=== PATIENT | female | born 1970 | race Caucasian/White ===

== ENCOUNTER → 2021-05-18 | Day surgery (SDC) | payer BC ==
[~2021-05-18] VITALS: Ht 167.6 cm; Wt 89.7 kg
[~2021-05-18] MED LIST: CYMBALTA 60MG60 MG PO; NEURONTIN300 MG/CAP PO; OMNICEF 300MG300 MG PO
[2021-05-18 09:06] VITALS: BP 102/68; PULSE 68; TEMP 98.4
[2021-05-18 11:35] VITALS: BP 109/68; PULSE 73; TEMP 98.1
[2021-05-18 11:45] VITALS: BP 110/68; PULSE 73
[2021-05-18 12:00] VITALS: BP 92/71; PULSE 75
[2021-05-18 12:15] VITALS: BP 97/56; PULSE 79
--- NOTE | 2021-05-18 12:50 | NUR ---
1129 Bedside report received from MARA Montano in PACU. 1135 Pt transported via cart and this RN from PACU to [facility] without complications. Monitors on and alarms set. Call light within reach. present in room. Pt denies pain or nausea. Pt alert and oriented. Pt requests Sprite and crackers. 1145 Pt taking food and drink well. No complications voiced. 1220 Pt ambulates to restroom with RN assist and voids. Pt returns to [facility] with RN assist. 1245 Discharge instructions given to pt and . Handed to her are these and a thank you card. All questions answered to her satisfaction. 1250 Pt transferred out of hospital via wheelchair and this RN assist to private vehicle driven by .
== END ==
LOC: SDCO 07:51
DX: N30.10 Interstitial cystitis (chronic) without hematuria (principal); R35.0 Frequency of micturition; M79.7 Fibromyalgia; G43.909 Migraine, unspecified, not intractable, without status migrainosus; F41.9 Anxiety disorder, unspecified; Z20.822 Contact with and (suspected) exposure to COVID-19; Z79.899 Other long term (current) drug therapy
CPT/HCPCS: J0690; J1100; J1885; J2405; J2704; J3010; J7120